=== PATIENT | female | born 1955 | race Caucasian/White ===

== ENCOUNTER 2017-12-23 08:04 | Outpatient (CLI) | payer BC, MEDICARE ==
--- NOTE | 2017-12-23 09:31 | RAD ---
CHEST PA AND LATERAL: HISTORY: A 62-year-old female with a history of dyspnea. COMPARISON: 12/05/15. FINDINGS: Heart size is within normal limits. The lungs are clear. No pneumonia, edema, or pleural effusion. IMPRESSION: Stable-appearing chest. No acute intrathoracic disease. POS: [facility]
== END 2017-12-23 08:05 | disposition home or self-care (01) ==
LOC: RAD 08:04
PROVIDERS: ATTEND Internal Medicine Critical Care Medicine
DX: R06.00 Dyspnea, unspecified (principal)
CPT/HCPCS: 71046

== ENCOUNTER 2018-06-25 13:35 | Outpatient (CLI) | payer MEDICARE ==
--- NOTE | 2018-06-25 15:40 | MRI ---
NONCONTRAST ENHANCED MRI IMAGES LUMBAR SPINE: DATE: 06/25/2018. COMPARISON: Comparison is made to a previous exam from 11/06/2013. FINDINGS: MRI images again demonstrate a large right renal cortical cyst unchanged since the previous exam. T12-L1: There is a tiny posterior left L1 facet synovial cyst. This does not extend into the spinal canal. No other significant T12-L1 abnormality is seen. There is a newly developed right L1-[address]-migrating epidural density possibly due to a fragment and migration of the right L1-2 disk extrusi on extending into the right L1-2 lateral recess and compressing the right L1 nerve root. L1-2: Unremarkable. L2-3: There is disk desiccation seen. There is bilateral facet and ligamentum flavum hypertrophy re sulting in mild central spinal stenosis. There is interval development of new left L2-3 lateral rece ss stenosis which compresses the left L3 nerve root as it passes through the lateral recess. This costello s developed in the interim since the previous comparison MRI. L3-4: Disk desiccation is seen. There is a broad-based central disk protrusion resulting in mild ce ntral and moderate lateral recess stenosis. The L3-4 lateral recesses have narrowed when compared to the previous exam slightly. The neural foramen bilaterally have also narrowed now demonstrating mod erate bilateral neural foraminal narrowing. L4-5: There is disk desiccation seen. There is mild anterolisthesis of L4 on L5. Bilateral facet a nd ligamentum flavum hypertrophy is seen. This results in moderate to severe right and severe left-s ided L4-5 neural foraminal narrowing due to facet hypertrophic changes. An annular fissure seen elsa g the posterior aspect of the L4-5 annulus fibrosis. There is moderate central spinal stenosis. Thi s is similar in appearance to the previous comparison arteriovenous malformation. L5-S1: Disk desiccation is seen. There is a broad-based disk bulge with moderate to severe left and moderate right-sided neural foraminal narrowing. IMPRESSION: 1. Right epidural and neural foraminal soft tissue density most compatible with an extruded disk fra gment migrating upward from the right L1-2 disk space. 2. Increasing facet hypertrophy with neural foraminal narrowing as described above. POS: [facility]
== END 2018-06-25 13:36 | disposition home or self-care (01) ==
LOC: BICMRI 13:35
PROVIDERS: ATTEND Specialist
DX: M51.16 Intervertebral disc disorders with radiculopathy, lumbar region (principal); M99.83 Other biomechanical lesions of lumbar region
CPT/HCPCS: 72148

== ENCOUNTER 2019-03-03 10:28 | Outpatient (CLI) | payer BC, MEDICARE ==
--- NOTE | 2019-03-03 11:00 | RAD ---
CHEST 2 VIEWS: Date: 03/03/19 HISTORY: Dyspnea. COMPARISON: 12/23/17 study. FINDINGS: Heart size within normal limits. There are atherosclerotic changes of the aorta. There is some linear scarring present in the left base. No focal infiltrative process. No pulmonary nodules. IMPRESSION: Stable exam. POS: [facility]
== END 2019-03-03 10:29 | disposition home or self-care (01) ==
LOC: RAD 10:28
PROVIDERS: ATTEND Internal Medicine Critical Care Medicine
DX: R06.00 Dyspnea, unspecified (principal)
CPT/HCPCS: 71046

== ENCOUNTER 2019-05-19 20:11 | Observation (INO) | payer BC, MEDICARE ==
[2019-05-19 20:36] LABS: #Basophils 0.1 thou/uL (0.0-0.2); #Eosinphils 0.1 thou/uL (0.0-0.7); #Monocytes 1.3 thou/uL (0.11-0.59); #Neutrophils 8.9 thou/uL (1.40-6.50); %Basophils 0.8 % (0.0-1.0); %Eosinophils 0.8 % (0.0-10.0); %Lymphocytes 22.7 % (21.0-51.0); %Monocytes 9.3 % (0.0-10.0); %Neutrophils 66.4 % (42.0-75.0); Mean Corpuscular HGB CONC 33.4 g/dL (32.0-36.0); Mean Corpuscular Hemoglobin 33.2 pg (27.0-31.0); Mean Corpuscular Volume 99.4 fL (78.0-98.0); Mean Platelet Volume 6.5 fL (7.4-10.4); Platelet Count 423 thou/uL (130-400); RBC Distribution Width 11.9 % (11.5-14.5); White Blood Cell (WBC) Count 13.4 thou/uL (4.8-10.8)
[2019-05-19] MEDS ORDERED: Nitroglycerin 2% Ointment 1 INCH/1 GM Packet ONE (20:39)
--- NOTE | 2019-05-19 20:52 | RAD ---
CHEST ONE VIEW: 05/19/19 HISTORY: Chest heaviness and pain. COMPARISON: 10/29/16 FINDINGS: Normal cardiac silhouette. Pulmonary vessels and hilum are normal. Costophrenic angles are clear. No consolidation or mass. No pneumothorax or osseous abnormality. There is atherosclerosis of the aortic knob. IMPRESSION: 1. No acute cardiopulmonary process. 2. Atherosclerosis. POS: [facility]
[2019-05-19 20:55] LABS: ALT (SGPT) 14 U/L (8-55); AST (SGOT) 19 U/L (5-34); Albumin 4.4 g/dL (3.4-4.8); Alkaline Phosphatase 83 U/L (40-150); Anion Gap 12 mmol/L (10-20); BUN (Urea Nitrogen) 14 mg/dL (9.8-20.1); Bilirubin, Total 0.3 mg/dL (0.2-1.2); CK (CPK) 111 U/L (29-168); Calc. Creatinine Clearance 0 mL/min (70-130); Calcium 11.2 mg/dL (7.8-10.44); Carbon Dioxide 25 mmol/L (23-31); Chloride 103 mmol/L (98-107); Estimated GFR-MDRD 76; Globulin 3.3 g/dL (2.4-3.5); Glucose 88 mg/dL (80-115); Potassium 4.2 mmol/L (3.5-5.1); Protein, Total 7.7 g/dL (6.0-8.3); Sodium 136 mmol/L (136-145)
[2019-05-19] MEDS ORDERED: Aspirin 325 MG TAB ONE (22:29)
--- NOTE | 2019-05-19 23:05 | PDOC.EVN ---
Event Note - Event Note Event Note: H&P dictated [id number]
[2019-05-19 23:10] VITALS: BMI 23.2
[2019-05-20 00:09] LABS: Troponin I Less than 0.010 ng/mL (< 0.028)
[2019-05-20 02:53] LABS: Troponin I Less than 0.010 ng/mL (< 0.028)
[2019-05-20 02:57] LABS: Cardiac Risk 2.2 (Less than 4.5)
--- NOTE | 2019-05-20 04:33 | HP ---
CHIEF COMPLAINT: Chest pain. HISTORY OF PRESENT ILLNESS: Ms. Rodriguez is a 64-year-old female with past medical history of asthma/COPD, presented to the emergency room with chest pain and shortness of breath since this morning. The patient also reported nausea while en route. The patient described chest pain as heavy in nature. The patient stated that she has taken nitroglycerin at home prior to arrival. She described nitroglycerin was prescribed by Dr. Barnes for angina. The patient has a history of two carotid surgeries. The patient reports history of negative catheterization. In the emergency room, initial blood pressure was 190/80. The patient is being admitted for hospital for further management. PAST MEDICAL HISTORY: 1. Asthma/COPD. 2. Hyperlipidemia. 3. Hypertension. 4. Bowel obstruction. 5. Inflammatory bowel disease/Crohn's. 6. Vasculitis. 7. Arthritis. 8. Peripheral neuropathy. 9. Hypothyroidism. 10. Migraines. 11. CVA? PAST SURGICAL HISTORY: 1. Laparoscopic cholecystectomy. 2. Gastric surgery x13. 3. Hernia repair. 4. Carotid endarterectomy. 5. Appendectomy. 6. Hysterectomy. 7. Orthopedic surgery. 8. Total knee replacement. 9. Splenectomy. 10. Tonsillectomy. SOCIAL HISTORY: The patient currently smokes about half a pack a day. Denies drug abuse. The patient drinks socially. FAMILY HISTORY: Reviewed and noncontributory. HOME MEDICATIONS: Please see home medication reconciliation form for updated medications. ALLERGIES: LISTED PER IN THE CHART. REVIEW OF SYSTEMS: Review of 14-systems negative except what was mentioned in the history of present illness. PHYSICAL EXAMINATION: VITAL SIGNS: Blood pressure 155/78, pulse is 67, respiratory rate is 22. The patient is afebrile. HEAD AND NECK: Normocephalic and atraumatic. Neck is supple. CHEST: Bilateral air entry. HEART: S1 and S2 regular. ABDOMEN: Soft. Nontender. Bowel sounds present. NEUROLOGIC: Awake, alert, and oriented x3. PSYCHIATRIC: Normal mood. EXTREMITIES: No clubbing. No cyanosis. LABORATORY DATA: Troponin is less than 0.028. WBC 13.4, hemoglobin 14. Chest x-ray, no acute cardiopulmonary disease. EKG, sinus rhythm with nonspecific ST changes. ASSESSMENT: 1. Acute chest pain. 2. Hypertensive urgency. 3. Asthma/chronic obstructive pulmonary disease. 4. Arthritis. 5. Degenerative disk disease. 6. Hypothyroidism. PLAN: 1. Admit. 2. Telemetry monitoring. 3. Monitor and control blood pressure. 4. Aspirin. 5. Serial cardiac enzymes. 6. Reassess the patient in a.m. May need cardiac stress testing. 7. Reconcile home medications. 8. Deep venous thrombosis prophylaxis, early ambulation. 9. Expected length of stay at least 1 midnight if the patient is stable and further workup negative. Job ID: [id number]
[2019-05-20] MEDS ORDERED: Mag-Al 1200 mg/1200 mg/30 ML UDCUP PO PRN (07:27)
[2019-05-20 08:19] VITALS: TEMP 98.3
[2019-05-20] MEDS ORDERED: Benzonatate 100 MG CAP PO PRN (08:19)
[2019-05-20] MEDS ORDERED: Nitroglycerin 0.4 MG TAB (25 Tab Bottle) SL PRN (08:19)
[2019-05-20] MEDS ORDERED: HYDROcodone/Acetaminophen 10/325 mg Tablet PO PRN (08:19)
[2019-05-20] MEDS ORDERED: Promethazine 25 MG TAB PO PRN (08:19)
[2019-05-20] MEDS ORDERED: Aspirin 325 mg Enteric Coated Tablet PO SCH (09:00)
[2019-05-20] MEDS ORDERED: Prevnar 13-Val Conj/PF 0.5 ML SYRINGE IM ONE (09:00)
[2019-05-20 12:08] VITALS: BP 176/81
[2019-05-20 12:13] LABS: #Basophils 0.1 thou/uL (0.0-0.2); #Eosinphils 0.1 thou/uL (0.0-0.7); #Lymphocytes 2.4 thou/uL (1.20-3.40); #Monocytes 1.2 thou/uL (0.11-0.59); #Neutrophils 10.9 thou/uL (1.40-6.50); %Basophils 0.4 % (0.0-1.0); %Eosinophils 0.7 % (0.0-10.0); %Lymphocytes 16.1 % (21.0-51.0); %Monocytes 8.4 % (0.0-10.0); %Neutrophils 74.4 % (42.0-75.0); Hemoglobin 14.3 g/dL (12.0-16.0); Mean Corpuscular HGB CONC 32.8 g/dL (32.0-36.0); Mean Corpuscular Hemoglobin 32.5 pg (27.0-31.0); Mean Corpuscular Volume 99.1 fL (78.0-98.0); Mean Platelet Volume 6.8 fL (7.4-10.4); Platelet Count 432 thou/uL (130-400); RBC Distribution Width 11.9 % (11.5-14.5); Red Blood Cell (RBC) Count 4.41 mill/uL (4.20-5.40); White Blood Cell (WBC) Count 14.7 thou/uL (4.8-10.8)
[2019-05-20 12:35] LABS: ALT (SGPT) 16 U/L (8-55); AST (SGOT) 20 U/L (5-34); Albumin 4.5 g/dL (3.4-4.8); Alkaline Phosphatase 85 U/L (40-150); Anion Gap 13 mmol/L (10-20); BUN (Urea Nitrogen) 15 mg/dL (9.8-20.1); Bilirubin, Total 0.4 mg/dL (0.2-1.2); Calc. Creatinine Clearance 72 mL/min (70-130); Calcium 10.5 mg/dL (7.8-10.44); Carbon Dioxide 28 mmol/L (23-31); Chloride 100 mmol/L (98-107); Estimated GFR-MDRD 74; Globulin 3.4 g/dL (2.4-3.5); Glucose 91 mg/dL (80-115); Potassium 5.2 mmol/L (3.5-5.1); Protein, Total 7.9 g/dL (6.0-8.3); Sodium 136 mmol/L (136-145)
[2019-05-20] MEDS ORDERED: Budesonide 0.25 MG/2 ML NEB NEB SCH (18:30)
[2019-05-20] MEDS ORDERED: Senokot 8.6 MG TAB PO SCH (21:00)
[2019-05-20] MEDS ORDERED: Atorvastatin Calcium 20 MG TAB PO SCH (21:00)
[2019-05-20] MEDS ORDERED: traZODone HCl 150 MG TAB PO SCH (21:00)
[2019-05-20] MEDS ORDERED: Aspirin 81 mg Enteric Coated Tablet PO SCH (21:00)
[2019-05-21] MEDS ORDERED: Levothyroxine 175 MCG TAB PO SCH (06:00)
--- NOTE | 2019-05-21 19:12 | DIS ---
DATE OF ADMISSION: 05/19/2019 DATE OF DISCHARGE: 05/20/2019 DISCHARGE DIAGNOSES: 1. Chest pain. 2. Tobacco abuse. 3. Hypertension. 4. Hyperlipidemia. 5. History of asthma/chronic obstructive pulmonary disease. HISTORY OF PRESENT ILLNESS: The patient is a 64-year-old female, who presented to the emergency department with a complaint of chest pain and some shortness of breath. She had some associated nausea en route to the hospital. She had taken some nitroglycerin previously prescribed by Dr. Barnes. She had negative troponin. Chest x-ray was clear. EKG had no significant ischemic changes. Her blood pressure was initially elevated. It was also noted that the patient had previously had a negative stress test in 2017, normal prior echocardiograms, and heart catheterization in 2016 which did not demonstrate any significant disease. HOSPITAL COURSE: The patient was admitted to telemetry where she continued to have serial cardiac isoenzymes and they remained negative. She did have elevated white blood cell count, but reported that she has a history of splenomegaly and always has elevated white blood cell count which was confirmed by a review of her prior labs. The patient's pain had completely resolved. She stated that point that she felt confident that her symptoms had come because of some psychosocial stressors that she had been experiencing through the day. She was not interested in pursuing aggressive workup knowing that her initial workup had been negative. She felt comfortable discharging to follow up with her gravity prospecting observer as an outpatient, and I believe that is a reasonable plan of action, therefore the patient would be discharged to home. PHYSICAL EXAMINATION: VITAL SIGNS: On the day of discharge, temperature 98.3, pulse 68, respirations 20, O2 saturation 96% on room air, blood pressure 149/67, up to 176/81. GENERAL: She was awake and alert. HEART: Regular rate and rhythm. LUNGS: Clear bilaterally. ABDOMEN: Benign. EXTREMITIES: No edema. DISPOSITION: The patient is discharged to home. ACTIVITY: As tolerated. DIET: She will have no new dietary restrictions. DISCHARGE MEDICATIONS: She will continue with her usual home medication regimen to include; 1. Senokot. 2. [place]. 3. Synthroid. 4. Ranexa. 5. Phenergan. 6. Aspirin. 7. Nitroglycerin p.r.n. 8. Atorvastatin. 9. Tessalon. 10. Budesonide nebulizer. 11. Trazodone. DISCHARGE FOLLOWUP: She will follow up with Dr. Cortes, her gravity prospecting observer, and return to the hospital should she have any problems prior to that time. Job ID: [id number]
== END 2019-05-20 13:02 | disposition home or self-care (01) ==
LOC: ERS 20:11 → 2SW 21:40
PROVIDERS: ADMIT Internal Medicine; ATTEND Internal Medicine
DX: R07.9 Chest pain, unspecified (principal); I16.0 Hypertensive urgency; I10 Essential (primary) hypertension; E78.5 Hyperlipidemia, unspecified; J44.9 Chronic obstructive pulmonary disease, unspecified; E03.9 Hypothyroidism, unspecified; M19.90 Unspecified osteoarthritis, unspecified site; F17.210 Nicotine dependence, cigarettes, uncomplicated; Z79.82 Long term (current) use of aspirin; Z79.899 Other long term (current) drug therapy; Z88.2 Allergy status to sulfonamides; Z88.5 Allergy status to narcotic agent; Z91.013 Allergy to seafood
CPT/HCPCS: 36415; 71045; 80053; 80061; 82550; 83690; 84484; 85025; 93005; G0378

== ENCOUNTER 2020-01-17 07:56 | Outpatient (CLI) | payer BC, MEDICARE, OTHER ==
--- NOTE | 2020-01-17 09:14 | MRI ---
MRI LUMBAR SPINE NONCONTRAST:: HISTORY: Lumbar radiculopathy. Low back pain, radiating down the right leg x4 months. COMPARISON: 06/25/2018. FINDINGS: Appropriate T1 marrow signal intensity of the lumbar vertebra. Lumbar spine vertebral body height is maintained. No fracture. No significant STIR hyperintensity to suggest vertebral body edema or ligamentous injury. Stable straightening of lumbar lordosis. Appropriate signal intensity of the visualized paraspinal muscles. Redemonstration of exophytic cyst emanating from the right renal cortex, incompletely evaluated. 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 Conus medullaris terminates at the mid to lower aspect of T12. T12-L1:Adequate disc hydration. No significant central canal stenosis or significant neural foraminal narrowing. L1-L2:Adequate disc hydration. Minimal T2 and STIR hyperintensity along the posterior margin of the a nnulus which may represent a small annular fissure. No associated disc herniation. No significant central canal stenosis. Bilaterally, neural foramina are patent. L2-L3:Disc desiccation with mild loss of disc space height. There is a broad-based disc bulge with a central/left subarticular T2 and STIR hyperintense focus annular fissure. Annular fissure does abut the traversing left L3 nerve root. Overall there is mild central canal stenosis and mild bilateral ne ural foraminal narrowing. L3-L4:Disc desiccation with mild to moderate loss of disc space height. Broad-based disc bulge, ligam entum flavum thickening and facet hypertrophy result in mild central canal stenosis. Narrowing of bilateral subarticular zones, right greater than left. Partial obscuration of the traversing right nerve root. No significant obscuration of the traversing left L4 nerve root. Mild to moderate bilateral neural foraminal narrowing, L4-L5:Disc desiccation with moderate loss of disc space height. Broad-based disc bulge, ligamentum fl avum thickening and facet hypertrophy result in mild central canal stenosis. Moderate to severe bilateral neural foraminal narrowing. L5-S1:Mild loss of disc space height. Broad-based disc bulge abuts the thecal sac. Mild central canal stenosis. Moderate to severe bilateral neural foraminal narrowing. IMPRESSION: 1. Multilevel degenerative changes of the lumbar spine as described above. 2. Multilevel annular fissures as described above. 3. Previously noted extruded disc fragment at the right aspect of the L1-L2 disc space is no longer e vident. Transcribed Date/Time: 01/17/2020 10:19 AM
== END 2020-01-17 07:57 | disposition home or self-care (01) ==
LOC: BICMRI 07:56
PROVIDERS: ATTEND Specialist
DX: M47.26 Other spondylosis with radiculopathy, lumbar region (principal); Q05.7 Lumbar spina bifida without hydrocephalus
CPT/HCPCS: 72148

== ENCOUNTER 2020-04-08 09:50 | Observation (INO) | payer MEDICARE, OTHER ==
[2020-04-08] MEDS ORDERED: Nitroglycerin 2% Ointment 1 INCH/1 GM Packet ONE (10:02)
[2020-04-08 15:02] LABS: Troponin I 0.025 ng/mL (< 0.028)
[2020-04-09 11:54] LABS: SARS-CoV-2 MS2 Positive; SARS-CoV-2 N Gene Negative; SARS-CoV-2 S Gene Negative; SARS-CoV-2 by NAA Not Detected (NotDetected); SARS-CoV-2 orf1ab Negative
== END 2020-04-08 15:44 | disposition short-term general hospital (02) ==
LOC: ERS 09:50 → ERHOLD 10:41
PROVIDERS: ADMIT Internal Medicine; ATTEND Internal Medicine
DX: R07.2 Precordial pain (principal); E78.5 Hyperlipidemia, unspecified; E78.00 Pure hypercholesterolemia, unspecified; I10 Essential (primary) hypertension; K50.90 Crohn's disease, unspecified, without complications; G62.9 Polyneuropathy, unspecified; E03.9 Hypothyroidism, unspecified; J45.909 Unspecified asthma, uncomplicated; F17.210 Nicotine dependence, cigarettes, uncomplicated; Z86.73 Personal history of transient ischemic attack (TIA), and cerebral infarction without residual deficits; Z79.82 Long term (current) use of aspirin; Z79.899 Other long term (current) drug therapy; Z88.2 Allergy status to sulfonamides; Z88.5 Allergy status to narcotic agent; Z91.013 Allergy to seafood; Z20.828 Contact with and (suspected) exposure to other viral communicable diseases
CPT/HCPCS: 84484; 93005; 99285; U0003; 36415; 87635

== ENCOUNTER 2020-12-20 12:01 | Outpatient (CLI) | payer MEDICARE | END 2020-12-20 12:02 | disposition home or self-care (01) | LOC: BICRAD 12:01 | PROVIDERS: ATTEND Internal Medicine Critical Care Medicine | DX: R06.00 Dyspnea, unspecified (principal) | CPT/HCPCS: 71046 ==

== ENCOUNTER 2021-07-09 08:39 | Outpatient (CLI) | payer MEDICARE | END 2021-07-09 08:40 | disposition home or self-care (01) | LOC: RAD 08:39 | PROVIDERS: ATTEND Internal Medicine Critical Care Medicine | DX: R06.00 Dyspnea, unspecified (principal) | CPT/HCPCS: 71046 ==

== ENCOUNTER 2021-10-13 07:07 | Inpatient (IN) | payer MEDICARE ==
[2021-10-13] MEDS ORDERED: Aspirin Chewable 81 MG TAB ONE (07:32)
[2021-10-13] MEDS ORDERED: Nitroglycerin 2% Ointment 1 INCH/1 GM Packet ONE ×2 (07:32→13:33)
[2021-10-13 07:46] LABS: #Basophils 0.1 thou/uL (0.0-0.2); #Eosinphils 0.1 thou/uL (0.0-0.7); #Lymphocytes 1.9 thou/uL (1.20-3.40); #Monocytes 1.1 thou/uL (0.11-0.59); %Eosinophils 0.8 % (0.0-10.0); %Lymphocytes 15.7 % (21.0-51.0); %Neutrophils 73.6 % (42.0-75.0); Hemoglobin 14.5 g/dL (12.0-16.0); Mean Corpuscular HGB CONC 32.9 g/dL (32.0-36.0); Mean Corpuscular Hemoglobin 32.3 pg (27.0-31.0); Mean Platelet Volume 6.5 fL (7.4-10.4); Platelet Count 466 thou/uL (130-400); RBC Distribution Width 12.3 % (11.5-14.5); Red Blood Cell (RBC) Count 4.49 mill/uL (4.20-5.40); White Blood Cell (WBC) Count 12.2 thou/uL (4.8-10.8)
[2021-10-13 08:14] LABS: ALT (SGPT) 14 U/L (8-55); AST (SGOT) 18 U/L (5-34); Albumin 4.4 g/dL (3.4-4.8); Alkaline Phosphatase 85 U/L (40-110); Anion Gap 14 mmol/L (10-20); BUN (Urea Nitrogen) 9 mg/dL (9.8-20.1); Bilirubin, Total 0.3 mg/dL (0.2-1.2); CK (CPK) 117 U/L (29-168); Calc. Creatinine Clearance 0 mL/min (70-130); Calcium 9.8 mg/dL (7.8-10.44); Carbon Dioxide 25 mmol/L (23-31); Chloride 104 mmol/L (98-107); Globulin 3.9 g/dL (2.4-3.5); Glucose 92 mg/dL (80-115); Lipase 36 U/L (8-78); Potassium 4.2 mmol/L (3.5-5.1); Protein, Total 8.3 g/dL (5.8-8.1); Sodium 139 mmol/L (136-145)
[2021-10-13] MEDS ORDERED: Iopamidol-370 76% 500 ML 1 ML ONE (09:11)
[2021-10-13] MEDS ORDERED: Metoprolol Tartrate 5 MG/5 ML VIAL ONE (10:07)
[2021-10-13] MEDS ORDERED: Enoxaparin Sodium 60 MG/0.6 ML SYRINGE ONE (10:07)
[2021-10-13] MEDS ORDERED: Nitroglycerin 0.4 MG TAB (25 Tab Bottle) SL PRN (10:18)
[2021-10-13] MEDS ORDERED: Ondansetron PF 4 MG/2 ML Vial IVP PRN (10:56)
[2021-10-13] MEDS ORDERED: Guaifenesin DM 100-10/5 ML UDCUP PO PRN (10:56)
[2021-10-13] MEDS ORDERED: Ondansetron ODT 4 MG TAB PO PRN (10:56)
[2021-10-13] MEDS ORDERED: Calcium Carbonate 500 MG ChewTAB PO PRN (10:56)
[2021-10-13] MEDS ORDERED: Acetaminophen 325 MG TAB PO PRN (10:56)
[2021-10-13] MEDS ORDERED: Senokot S 8.6-50 MG TAB PO PRN (10:56)
[2021-10-13 11:33] LABS: Troponin I Less than 0.010 ng/mL (< 0.028)
[2021-10-13 11:37] LABS: Magnesium 2.3 mg/dL (1.6-2.6)
[2021-10-13] MEDS: Nitroglycerin 2% Ointment 1 INCH/1 GM Packet TOP SCH ×2 (13:27→22:10)
[2021-10-13 14:13] LABS: Troponin I Less than 0.010 ng/mL (< 0.028)
[2021-10-13 16:57] VITALS: BMI 23.3
[2021-10-13] MEDS: Nicotine 14 MG PATCH TOP SCH (18:29)
[2021-10-13] MEDS: Albuterol Sulfate 2.5 mg/3 ml Neb NEB SCH (19:22)
[2021-10-13] MEDS: Budesonide 0.5 MG/2 ML NEB FS SCH (19:26)
[2021-10-13] MEDS: traZODone HCl 50 MG TAB PO SCH (20:29)
[2021-10-13] MEDS: Benzonatate 100 MG CAP PO SCH (20:29)
[2021-10-13] MEDS: Famotidine 20 MG TAB PO SCH (20:30)
[2021-10-13] MEDS: NIFEdipine XL 30 MG TAB PO SCH (20:30)
[2021-10-13] MEDS: Famotidine/PF 20 mg/2ml Vial SLOW IVP SCH (22:10)
[2021-10-14] MEDS: HYDROcodone/Acetaminophen 10/325 mg Tablet PO PRN ×2 (01:48→12:49)
[2021-10-14 04:49] LABS: #Basophils 0.1 thou/uL (0.0-0.2); #Eosinphils 0.2 thou/uL (0.0-0.7); #Lymphocytes 2.3 thou/uL (1.20-3.40); #Monocytes 1.3 thou/uL (0.11-0.59); #Neutrophils 7.2 thou/uL (1.40-6.50); %Basophils 0.5 % (0.0-1.0); %Eosinophils 1.6 % (0.0-10.0); %Lymphocytes 20.6 % (21.0-51.0); %Monocytes 11.7 % (0.0-10.0); %Neutrophils 65.7 % (42.0-75.0); Mean Corpuscular HGB CONC 31.3 g/dL (32.0-36.0); Mean Corpuscular Hemoglobin 31.3 pg (27.0-31.0); Mean Corpuscular Volume 99.9 fL (78.0-98.0); Mean Platelet Volume 7.1 fL (7.4-10.4); Platelet Count 408 thou/uL (130-400); RBC Distribution Width 12.3 % (11.5-14.5); Red Blood Cell (RBC) Count 3.84 mill/uL (4.20-5.40)
[2021-10-14 05:12] LABS: Anion Gap 11 mmol/L (10-20); BUN (Urea Nitrogen) 10 mg/dL (9.8-20.1); Calc. Creatinine Clearance 87 mL/min (70-130); Calcium 8.7 mg/dL (7.8-10.44); Carbon Dioxide 22 mmol/L (23-31); Cardiac Risk 4.4 (Less than 4.5); Chloride 109 mmol/L (98-107); Cholesterol 190 mg/dl (< 200 Desired); Glucose 87 mg/dL (80-115); HDL Cholesterol 43 mg/dL (>60 Neg Risk); LDL Cholesterol, Calculated 126 mg/dL; Potassium 4.3 mmol/L (3.5-5.1); Sodium 138 mmol/L (136-145); Triglycerides 105 mg/dL (Less than 150)
[2021-10-14] MEDS: Levothyroxine Sodium 100 MCG TAB PO SCH (05:54)
[2021-10-14] MEDS: Levothyroxine Sodium 75 MCG TAB PO SCH (05:54)
[2021-10-14] MEDS: Nitroglycerin 2% Ointment 1 INCH/1 GM Packet TOP SCH ×2 (05:55→17:23)
[2021-10-14] MEDS: Albuterol Sulfate 2.5 mg/3 ml Neb NEB SCH ×4 (07:32→23:21)
[2021-10-14] MEDS: Budesonide 0.5 MG/2 ML NEB FS SCH ×2 (07:33→23:20)
[2021-10-14] MEDS ORDERED: Atorvastatin Calcium 40 MG TAB PO SCH (09:00)
[2021-10-14] MEDS: Benzonatate 100 MG CAP PO SCH ×3 (10:16→19:56)
[2021-10-14] MEDS: Famotidine/PF 20 mg/2ml Vial SLOW IVP SCH ×2 (10:17→19:58)
[2021-10-14] MEDS: Fluticasone Propionate Nasal Spray 16 gm Bottle NASAL SCH (10:17)
[2021-10-14] MEDS: NIFEdipine XL 30 MG TAB PO SCH ×2 (10:18→19:56)
[2021-10-14] MEDS: Famotidine 20 MG TAB PO SCH ×2 (11:57→19:57)
[2021-10-14] MEDS: Aspirin Chewable 81 MG TAB PO SCH (11:57)
[2021-10-14] MEDS ORDERED: Midazolam HCl 2 mg/2 ml Vial ONE (14:27)
[2021-10-14] MEDS ORDERED: Fentanyl 100 MCG/2 ML VIAL ONE (14:27)
[2021-10-14] MEDS ORDERED: Clopidogrel Bisulfate 300 MG TAB PO SCH (15:30)
[2021-10-14] MEDS: Nicotine 14 MG PATCH TOP SCH (17:18)
[2021-10-14] MEDS: traZODone HCl 50 MG TAB PO SCH (19:57)
[2021-10-15] MEDS: Levothyroxine Sodium 75 MCG TAB PO SCH (06:18)
[2021-10-15] MEDS: Levothyroxine Sodium 100 MCG TAB PO SCH (06:18)
[2021-10-15 07:29] LABS: Anion Gap 13 mmol/L (10-20); BUN (Urea Nitrogen) 9 mg/dL (9.8-20.1); Calc. Creatinine Clearance 83 mL/min (70-130); Calcium 9.2 mg/dL (7.8-10.44); Carbon Dioxide 24 mmol/L (23-31); Chloride 105 mmol/L (98-107); Glucose 101 mg/dL (80-115); Magnesium 2.1 mg/dL (1.6-2.6); Phosphorus 3.5 mg/dL (2.3-4.7); Potassium 4.1 mmol/L (3.5-5.1); Sodium 138 mmol/L (136-145)
[2021-10-15 07:31] LABS: #Basophils 0.1 thou/uL (0.0-0.2); #Eosinphils 0.1 thou/uL (0.0-0.7); #Lymphocytes 1.9 thou/uL (1.20-3.40); #Monocytes 1.1 thou/uL (0.11-0.59); #Neutrophils 11.1 thou/uL (1.40-6.50); %Basophils 0.6 % (0.0-1.0); %Eosinophils 0.6 % (0.0-10.0); %Lymphocytes 13.5 % (21.0-51.0); %Monocytes 7.9 % (0.0-10.0); %Neutrophils 77.4 % (42.0-75.0); Hemoglobin 12.6 g/dL (12.0-16.0); Mean Corpuscular HGB CONC 32.9 g/dL (32.0-36.0); Mean Corpuscular Hemoglobin 32.4 pg (27.0-31.0); Mean Corpuscular Volume 98.6 fL (78.0-98.0); Mean Platelet Volume 6.7 fL (7.4-10.4); Platelet Count 434 thou/uL (130-400); RBC Distribution Width 12.2 % (11.5-14.5); Red Blood Cell (RBC) Count 3.89 mill/uL (4.20-5.40); White Blood Cell (WBC) Count 14.4 thou/uL (4.8-10.8)
[2021-10-15] MEDS: Albuterol Sulfate 2.5 mg/3 ml Neb NEB SCH (07:42)
[2021-10-15] MEDS: Budesonide 0.5 MG/2 ML NEB FS SCH (07:43)
[2021-10-15] MEDS ORDERED: Atorvastatin Calcium 40 MG TAB PO SCH (08:18)
[2021-10-15] MEDS ORDERED: Lidocaine 5% Patch TD SCH (09:00)
[2021-10-15] MEDS ORDERED: Clopidogrel Bisulfate 75 MG TAB PO SCH (09:00)
[2021-10-15] MEDS ORDERED: Atorvastatin Calcium 20 MG TAB PO SCH (09:00)
[2021-10-15] MEDS: Famotidine/PF 20 mg/2ml Vial SLOW IVP SCH (09:11)
[2021-10-15] MEDS: Aspirin Chewable 81 MG TAB PO SCH (09:12)
[2021-10-15] MEDS: Famotidine 20 MG TAB PO SCH (09:13)
[2021-10-15] MEDS: Benzonatate 100 MG CAP PO SCH (09:13)
[2021-10-15] MEDS: Fluticasone Propionate Nasal Spray 16 gm Bottle NASAL SCH (09:25)
[2021-10-15] MEDS ORDERED: Albuterol Sulfate 2.5 mg/3 ml Neb NEB SCH (11:00)
[2021-10-15] MEDS: NIFEdipine XL 30 MG TAB PO SCH (11:19)
[2021-10-15 11:24] VITALS: BP 124/56; TEMP 98
[2021-10-15] MEDS ORDERED: Transdermal Patch Removal TOP SCH (21:00)
== END 2021-10-15 13:56 | disposition home or self-care (01) | DRG 287 ==
LOC: ERS 07:07 → ERHOLD 10:19 → 2SW 16:11 → 2NO 10-14 19:23
PROVIDERS: ADMIT Internal Medicine; ATTEND Family Medicine
PROC: 4A023N7 Measurement of Cardiac Sampling and Pressure, Left Heart, Percutaneous Approach (ICD-10-PCS; principal; 2021-10-13)
PROC: B2151ZZ Fluoroscopy of Left Heart using Low Osmolar Contrast (ICD-10-PCS; 2021-10-13)
PROC: B2111ZZ Fluoroscopy of Multiple Coronary Arteries using Low Osmolar Contrast (ICD-10-PCS; 2021-10-13)
DX: I25.110 Atherosclerotic heart disease of native coronary artery with unstable angina pectoris (principal); D69.3 Immune thrombocytopenic purpura; Z66 Do not resuscitate; Z20.822 Contact with and (suspected) exposure to COVID-19; I10 Essential (primary) hypertension; E78.5 Hyperlipidemia, unspecified; M79.7 Fibromyalgia; J44.9 Chronic obstructive pulmonary disease, unspecified; Z88.2 Allergy status to sulfonamides; Z88.5 Allergy status to narcotic agent; Z91.013 Allergy to seafood; Z90.49 Acquired absence of other specified parts of digestive tract; Z90.710 Acquired absence of both cervix and uterus; Z79.82 Long term (current) use of aspirin; Z79.890 Hormone replacement therapy; Z79.51 Long term (current) use of inhaled steroids; Z87.891 Personal history of nicotine dependence
CPT/HCPCS: 36415; 71045; 71275; 80048; 80053; 80061; 82550; 83690; 83735; 83880; 84100; 84443; 84484; 85025; 85379; 93005; 93458; 94640; 94760; 96372; 96374; 99152; J1650; J2250; J3010; J7611; J7626; Q9967; S0028

== ENCOUNTER 2022-01-30 13:10 | Outpatient (CLI) | payer MEDICARE | END 2022-01-30 13:11 | disposition home or self-care (01) | LOC: BICRAD 13:10 | PROVIDERS: ATTEND Nurse Practitioner Family | DX: M47.22 Other spondylosis with radiculopathy, cervical region (principal) | CPT/HCPCS: 72050 ==

== ENCOUNTER 2022-06-12 15:34 | Outpatient (CLI) | payer MEDICARE | END 2022-06-12 15:35 | disposition home or self-care (01) | LOC: RAD 15:34 | PROVIDERS: ATTEND Internal Medicine Critical Care Medicine | DX: R06.09 Other forms of dyspnea (principal) | CPT/HCPCS: 71046 ==

== ENCOUNTER 2023-03-10 20:41 | Observation (INO) | payer MEDICARE ==
[2023-03-10 21:01] LABS: #Basophils 0.1 thou/uL (0.0-0.2); #Eosinphils 0.3 thou/uL (0.0-0.7); #Monocytes 1.5 thou/uL (0.11-0.59); #Neutrophils 6.9 thou/uL (1.40-6.50); %Basophils 0.8 % (0.0-1.0); %Eosinophils 2.2 % (0.0-10.0); %Lymphocytes 23.3 % (21.0-51.0); %Monocytes 13.4 % (0.0-10.0); Hemoglobin 13.8 g/dL (12.0-16.0); Mean Corpuscular HGB CONC 33.7 g/dL (32.0-36.0); Mean Corpuscular Hemoglobin 32.5 pg (27.0-31.0); Mean Corpuscular Volume 96.5 fl (78.0-98.0); Mean Platelet Volume 8.7 fL (7.4-10.4); Platelet Count 375 10x3/uL (130-400); RBC Distribution Width 14.3 % (11.5-14.5); Red Blood Cell (RBC) Count 4.24 mill/uL (4.20-5.40); White Blood Cell (WBC) Count 11.5 10x3/uL (4.8-10.8)
[2023-03-10 21:25] LABS: ALT (SGPT) 15 U/L (8-55); AST (SGOT) 17 U/L (5-34); Albumin 4.3 g/dL (3.4-4.8); Alkaline Phosphatase 84 U/L (40-110); Anion Gap 13 mmol/L (10-20); BUN (Urea Nitrogen) 18 mg/dL (9.8-20.1); Bilirubin, Total Less than 0.2 mg/dL (0.2-1.2); Calc. Creatinine Clearance 0 mL/min (70-130); Calcium 9.9 mg/dL (7.8-10.44); Carbon Dioxide 23 mmol/L (23-31); Chloride 105 mmol/L (98-107); Estimated GFR 85; Globulin 3.4 g/dL (2.4-3.5); Glucose 104 mg/dL (80-115); Potassium 4.4 mmol/L (3.5-5.1); Protein, Total 7.7 g/dL (5.8-8.1); Sodium 137 mmol/L (136-145)
[2023-03-11 00:50] LABS: Troponin I 0.021 ng/mL (< 0.028)
[2023-03-11] MEDS ORDERED: Calcium Carbonate 500 MG ChewTAB PO PRN (00:51)
[2023-03-11] MEDS ORDERED: Ondansetron ODT 4 MG TAB PO PRN (00:51)
[2023-03-11] MEDS ORDERED: Acetaminophen 325 MG TAB PO PRN (00:51)
[2023-03-11] MEDS ORDERED: Senokot S 8.6-50 MG TAB PO PRN (00:51)
[2023-03-11] MEDS ORDERED: Nitroglycerin 0.4 MG TAB (25 Tab Bottle) SL PRN (00:53)
[2023-03-11] MEDS ORDERED: Albuterol 200 PUFF (6.7GM INHALER) INH PRN (00:53)
[2023-03-11 01:34] VITALS: BMI 22.4
[2023-03-11 04:18] LABS: #Basophils 0.1 thou/uL (0.0-0.2); #Eosinphils 0.3 thou/uL (0.0-0.7); #Monocytes 1.5 thou/uL (0.11-0.59); #Neutrophils 5.5 thou/uL (1.40-6.50); %Basophils 0.8 % (0.0-1.0); %Eosinophils 2.9 % (0.0-10.0); %Lymphocytes 25.5 % (21.0-51.0); %Monocytes 15.4 % (0.0-10.0); Hemoglobin 14.4 g/dL (12.0-16.0); Mean Corpuscular HGB CONC 33.6 g/dL (32.0-36.0); Mean Corpuscular Volume 95.1 fl (78.0-98.0); Mean Platelet Volume 9.4 fL (7.4-10.4); Platelet Count 312 10x3/uL (130-400); RBC Distribution Width 14.3 % (11.5-14.5); White Blood Cell (WBC) Count 9.9 10x3/uL (4.8-10.8)
[2023-03-11 04:49] LABS: Troponin I 0.016 ng/mL (< 0.028)
[2023-03-11] MEDS: Levothyroxine Sodium 125 MCG TAB PO SCH (05:39)
[2023-03-11] MEDS: HYDROcodone/Acetaminophen 5/325 mg Tablet PO PRN ×2 (06:25→14:05)
[2023-03-11 08:42] LABS: Anion Gap 12 mmol/L (10-20); BUN (Urea Nitrogen) 14 mg/dL (9.8-20.1); Calc. Creatinine Clearance 75 mL/min (70-130); Calcium 9.8 mg/dL (7.8-10.44); Carbon Dioxide 26 mmol/L (23-31); Chloride 105 mmol/L (98-107); Estimated GFR 94; Glucose 88 mg/dL (80-115); Potassium 4.4 mmol/L (3.5-5.1); Sodium 139 mmol/L (136-145)
[2023-03-11] MEDS ORDERED: (Evolocumab [Repatha Sureclick] 140 MG/ML Pen.Injctr) SC SCH (09:00)
[2023-03-11] MEDS: Aspirin 81 mg Enteric Coated Tablet PO SCH (09:00)
[2023-03-11] MEDS ORDERED: Famotidine 20 MG TAB PO SCH (09:00)
[2023-03-11] MEDS: Nicotine 14 MG PATCH TD SCH (09:00)
[2023-03-11] MEDS: NIFEdipine XL 30 MG TAB PO SCH ×2 (09:00→20:04)
[2023-03-11] MEDS ORDERED: traZODone HCl 150 MG TAB PO SCH (21:00)
[2023-03-12 05:28] LABS: #Basophils 0.1 thou/uL (0.0-0.2); #Eosinphils 0.2 thou/uL (0.0-0.7); #Monocytes 1.4 thou/uL (0.11-0.59); %Eosinophils 2.2 % (0.0-10.0); %Lymphocytes 22.3 % (21.0-51.0); %Monocytes 14.5 % (0.0-10.0); %Neutrophils 59.7 % (42.0-75.0); Hemoglobin 14.7 g/dL (12.0-16.0); Mean Corpuscular HGB CONC 33.3 g/dL (32.0-36.0); Mean Corpuscular Hemoglobin 32.3 pg (27.0-31.0); Mean Corpuscular Volume 96.9 fl (78.0-98.0); Mean Platelet Volume 8.6 fL (7.4-10.4); Platelet Count 373 10x3/uL (130-400); RBC Distribution Width 14.3 % (11.5-14.5); Red Blood Cell (RBC) Count 4.55 mill/uL (4.20-5.40)
[2023-03-12 05:52] LABS: Anion Gap 11 mmol/L (10-20); BUN (Urea Nitrogen) 19 mg/dL (9.8-20.1); Calc. Creatinine Clearance 75 mL/min (70-130); Calcium 9.9 mg/dL (7.8-10.44); Carbon Dioxide 24 mmol/L (23-31); Chloride 105 mmol/L (98-107); Estimated GFR 94; Glucose 94 mg/dL (80-115); Potassium 4.1 mmol/L (3.5-5.1); Sodium 136 mmol/L (136-145)
[2023-03-12] MEDS: Levothyroxine Sodium 125 MCG TAB PO SCH (05:54)
[2023-03-12] MEDS: NIFEdipine XL 30 MG TAB PO SCH (08:11)
[2023-03-12] MEDS: Aspirin 81 mg Enteric Coated Tablet PO SCH (08:12)
[2023-03-12] MEDS ORDERED: Regadenoson 0.4 MG/5 ML SYRINGE ONE (10:18)
[2023-03-12] MEDS: Nicotine 14 MG PATCH TD SCH (11:20)
[2023-03-12] MEDS: HYDROcodone/Acetaminophen 5/325 mg Tablet PO PRN (11:26)
[2023-03-12 13:21] VITALS: BP 145/65; TEMP 97.7
== END 2023-03-12 15:48 | disposition home or self-care (01) ==
LOC: ERS 20:41 → 2SW 22:50
PROVIDERS: ADMIT Student in an Organized Health Care Education/Training Program; ATTEND Internal Medicine
DX: R06.00 Dyspnea, unspecified (principal); I25.10 Atherosclerotic heart disease of native coronary artery without angina pectoris; I10 Essential (primary) hypertension; J44.9 Chronic obstructive pulmonary disease, unspecified; F17.210 Nicotine dependence, cigarettes, uncomplicated; E03.9 Hypothyroidism, unspecified; G47.00 Insomnia, unspecified; K21.9 Gastro-esophageal reflux disease without esophagitis; E78.5 Hyperlipidemia, unspecified; Z88.6 Allergy status to analgesic agent; Z88.2 Allergy status to sulfonamides; Z86.73 Personal history of transient ischemic attack (TIA), and cerebral infarction without residual deficits; Z90.49 Acquired absence of other specified parts of digestive tract; Z90.710 Acquired absence of both cervix and uterus; Z90.89 Acquired absence of other organs; Z79.890 Hormone replacement therapy; Z79.899 Other long term (current) drug therapy; Z91.018 Allergy to other foods
CPT/HCPCS: 71045; 78452; 80048 ×2; 80053; 83880; 84484 ×3; 85025 ×3; 93005; 93017; 93306; 99285; A9500; 36415; G0378; J2785

== ENCOUNTER 2023-04-21 08:15 | Observation (INO) | payer MEDICARE ==
[2023-04-21] MEDS ORDERED: fentaNYL PF 100 MCG/2 ML SYRINGE ONE (08:52)
[2023-04-21] MEDS ORDERED: Vancomycin 1 GM VIAL ONE (10:03)
[2023-04-21] MEDS ORDERED: Thrombin 5000 UNITS/5 ML VIAL ONE (10:03)
[2023-04-21] MEDS ORDERED: CEFAZOLIN 2 GM VIAL ONE (10:33)
[2023-04-21] MEDS ORDERED: Sodium Chloride 0.9% 100 ML ONE (10:33)
[2023-04-21] MEDS ORDERED: Lidocaine 1% PF 5 ML VIAL ONE (10:38)
[2023-04-21] MEDS ORDERED: Ondansetron PF 4 MG/2 ML Vial ONE (10:38)
[2023-04-21] MEDS ORDERED: PROPOFOL 200 MG/20 ML VIAL ONE (10:38)
[2023-04-21] MEDS ORDERED: Dexamethasone 20 MG/5 ML VIAL ONE (10:38)
[2023-04-21] MEDS ORDERED: Rocuronium Bromide 10 MG/ML (10ML VIAL) ONE (10:38)
[2023-04-21] MEDS ORDERED: ePHEDrine Sulfate 50 MG/10 ML VIAL ONE (10:38)
[2023-04-21] MEDS ORDERED: HYDROmorphone 2 MG/ML VIAL ONE (12:37)
[2023-04-21] MEDS ORDERED: SUGAMMADEX SODIUM 200 MG/2 ML VIAL ONE (12:42)
[2023-04-21] MEDS ORDERED: Ondansetron PF 4 MG/2 ML Vial IVP PRN (13:35)
[2023-04-21] MEDS ORDERED: traMADol HCl 50 MG TAB PO PRN (13:35)
[2023-04-21] MEDS ORDERED: Acetaminophen 325 MG TAB PO PRN (13:35)
[2023-04-21] MEDS ORDERED: HYDROmorphone 0.5 MG/0.5 ML SYRINGE ONE ×3 (13:37→14:17)
[2023-04-21] MEDS ORDERED: Nitroglycerin 0.4 MG TAB (25 Tab Bottle) SL PRN (13:40)
[2023-04-21] MEDS ORDERED: hydrALAZINE 20 MG/ML VIAL SLOW IVP PRN (13:40)
[2023-04-21] MEDS ORDERED: Ondansetron HCl/PF 4 MG/2 ML Vial IVP PRN (13:47)
[2023-04-21] MEDS ORDERED: HYDROmorphone 2 MG/ML VIAL SLOW IVP PRN (13:47)
[2023-04-21] MEDS ORDERED: Promethazine HCl 25 MG/ML VIAL IM PRN (13:47)
[2023-04-21] MEDS ORDERED: Ipratropium/Albuterol 3 ML NEB ONE (13:51)
[2023-04-21] MEDS ORDERED: Nicotine 14 MG PATCH TOP SCH (14:00)
[2023-04-21] MEDS: Sodium Chloride 0.9% 1,000 ML IV SCH (16:07)
[2023-04-21] MEDS: Morphine 2 MG/ML VIAL SLOW IVP PRN ×2 (16:41→19:50)
[2023-04-21] MEDS: CEFAZOLIN 2 GM in Sodium Chloride 0.9% 100 ML IVPB SCH (18:05)
[2023-04-21] MEDS: HYDROcodone/Acetaminophen 10/325 mg Tablet PO PRN (18:06)
[2023-04-21 18:17] VITALS: BMI 22.3
[2023-04-21] MEDS: NIFEdipine XL 30 MG TAB PO SCH (19:48)
[2023-04-21] MEDS: tiZANidine HCl 4 MG TAB PO PRN (19:49)
[2023-04-21] MEDS ORDERED: traZODone HCl 50 MG TAB PO PRN (21:00)
[2023-04-22] MEDS: Morphine 2 MG/ML VIAL SLOW IVP PRN (00:17)
[2023-04-22] MEDS: traMADol HCl 50 MG TAB PO PRN ×2 (01:29→09:23)
[2023-04-22] MEDS: CEFAZOLIN 2 GM in Sodium Chloride 0.9% 100 ML IVPB SCH (01:30)
[2023-04-22] MEDS: tiZANidine HCl 4 MG TAB PO PRN (05:05)
[2023-04-22] MEDS: Sodium Chloride 0.9% 1,000 ML IV SCH (05:05)
[2023-04-22] MEDS: HYDROcodone/Acetaminophen 10/325 mg Tablet PO PRN (05:05)
[2023-04-22] MEDS ORDERED: Levothyroxine 175 MCG TAB PO SCH (06:00)
[2023-04-22] MEDS: NIFEdipine XL 30 MG TAB PO SCH (08:35)
[2023-04-22 11:19] VITALS: BP 124/66; TEMP 98
== END 2023-04-22 11:35 | disposition home or self-care (01) ==
LOC: SDC 08:15 → T4-A 13:35
PROVIDERS: ADMIT Surgery; ATTEND Surgery
PROC: 01NB0ZZ Release Lumbar Nerve, Open Approach (ICD-10-PCS; principal; 2023-04-21)
PROC: 0SB20ZZ Excision of Lumbar Vertebral Disc, Open Approach (ICD-10-PCS; 2023-04-21)
PROC: 0SB40ZZ Excision of Lumbosacral Disc, Open Approach (ICD-10-PCS; 2023-04-21)
DX: M48.062 Spinal stenosis, lumbar region with neurogenic claudication (principal); M51.17 Intervertebral disc disorders with radiculopathy, lumbosacral region; M50.30 Other cervical disc degeneration, unspecified cervical region; M50.20 Other cervical disc displacement, unspecified cervical region; M48.02 Spinal stenosis, cervical region
CPT/HCPCS: J1100; J1170; J2272; J2405; J2704; J3370; J3490; J7050; J7620

== ENCOUNTER 2023-11-09 09:57 | Outpatient (CLI) | payer MEDICARE ==
[2023-11-09 11:58] LABS: Hematocrit 42.1 % (34.9-44.5); Mean Corpuscular HGB CONC 33.3 g/dL (32.0-36.0); Mean Corpuscular Hemoglobin 31.1 pg (27.0-33.0); Mean Corpuscular Volume 93.6 fl (81.6-98.3); Mean Platelet Volume 9.1 fl (7.4-10.4); Platelet Count 452 10x3/uL (150-450); RBC Distribution Width 13.8 % (11.5-14.5); White Blood Cell (WBC) Count 11.5 10x3/uL (3.5-10.5)
[2023-11-09 12:15] LABS: Anion Gap 13 mmol/L (10-20); BUN (Urea Nitrogen) 16 mg/dL (9.8-20.1); Calc. Creatinine Clearance 0 mL/min (70-130); Calcium 9.9 mg/dL (7.8-10.44); Carbon Dioxide 27 mmol/L (23-31); Chloride 105 mmol/L (98-107); Estimated GFR 94; Glucose 61 mg/dL (80-115); INR-International Normal Ratio 0.9; PTT 27.1 sec (22.0-33.0); Potassium 4.7 mmol/L (3.5-5.1); Prothrombin Time 9.8 sec (9.5-12.1); Sodium 140 mmol/L (136-145)
[2023-11-09 12:33] LABS: SARS-CoV-2 E Target Negative; SARS-CoV-2 N2 Target Negative; SARS-CoV-2 NAA Rapid Test Not Detected (NotDetected); SARS-CoV-2 RdRP gene Negative
== END 2023-11-09 09:58 | disposition home or self-care (01) ==
LOC: LABBT 09:57
PROVIDERS: ATTEND Surgery
DX: Z01.818 Encounter for other preprocedural examination (principal)
CPT/HCPCS: 80048; 85027; 85610; 85730; 93005; U0002; 93010

== ENCOUNTER 2024-05-22 19:41 | Observation (INO) | payer MEDICARE ==
[2024-05-22 20:23] LABS: #Basophils 0.08 10x3/uL (0.0-0.2); %Basophils 0.6 % (0.0-1.0); %Eosinophils 1.6 % (0.0-10.0); %Lymphocytes 29.8 % (21.0-51.0); %Monocytes 10.6 % (0.0-10.0); Hematocrit 39.2 % (36.0-47.0); Hemoglobin 13.4 g/dL (12.0-16.0); Mean Corpuscular HGB CONC 34.2 g/dL (32.0-36.0); Mean Corpuscular Hemoglobin 32.1 pg (27.0-31.0); Mean Corpuscular Volume 93.8 fL (78.0-98.0); Mean Platelet Volume 8.7 fL (7.4-10.4); Platelet Count 421 10x3/uL (130-400); RBC Distribution Width 13.5 % (11.5-14.5); Red Blood Cell (RBC) Count 4.18 mill/uL (4.20-5.40)
[2024-05-22 20:37] LABS: ALT (SGPT) 17 U/L (8-55); AST (SGOT) 23 U/L (5-34); Albumin 4.1 g/dL (3.4-4.8); Alkaline Phosphatase 72 U/L (40-110); Anion Gap 16 mmol/L (10-20); BUN (Urea Nitrogen) 15 mg/dL (9.8-20.1); Bilirubin, Total 0.2 mg/dL (0.2-1.2); Calc. Creatinine Clearance 0 mL/min (70-130); Calcium 9.9 mg/dL (7.8-10.44); Carbon Dioxide 20 mmol/L (23-31); Chloride 108 mmol/L (98-107); Estimated GFR 76; Globulin 3.9 g/dL (2.4-3.5); Glucose 86 mg/dL (80-115); Lipase 20 U/L (8-78); Potassium 4.6 mmol/L (3.5-5.1); Sodium 139 mmol/L (136-145)
[2024-05-22 20:42] LABS: Troponin I Less than 0.010 ng/mL (< 0.028)
[2024-05-22] MEDS ORDERED: Labetalol HCl 100 MG/20 ML VIAL ONE (20:58)
[2024-05-22] MEDS ORDERED: Acetaminophen 500 MG TAB ONE (21:11)
[2024-05-22] MEDS ORDERED: Ondansetron ODT 4 MG TAB PO PRN (21:54)
[2024-05-22] MEDS ORDERED: Ondansetron PF 4 MG/2 ML Vial IVP PRN (21:54)
[2024-05-22 22:11] LABS: INR-International Normal Ratio 0.9; Prothrombin Time 11.7 sec (12.0-14.7)
[2024-05-22 22:12] LABS: PTT 27.7 sec (22.9-36.1)
[2024-05-22 23:19] VITALS: BMI 20.5
[2024-05-23] MEDS: Lidocaine 2% Viscous 10 mL, Alum & Magn 30 mL SSW SCH (00:09)
[2024-05-23] MEDS: traZODone HCl 150 MG TAB PO SCH (00:28)
[2024-05-23 01:42] LABS: Bacteria/HPF None Seen HPF (None Seen); Bilirubin Negative (Negative); Blood, Urine Negative (Negative); CAUTI Indications for Culture Alt mental st,lethar; Clarity Clear (Clear); Glucose, Urine (Dipstick) Normal (Negative); Ketone, Urine Negative (Negative); Leukocyte Negative Leu/uL (Negative); Nitrite Negative (Negative); Protein, Urine (Dipstick) Negative (Neg-Trace); RBC/HPF 0-3 HPF (0-3); Specific Gravity, Urine 1.016 (1.002-1.036); Squamous Epithelial 0-3 HPF (0-3); Urobilinogen Normal mg/dL (Less than 2); pH, Urine 5.5 (5.0-9.0)
[2024-05-23 01:45] LABS: Urine Culture Reflex No No
[2024-05-23] MEDS: Nicotine 14 MG PATCH TOP SCH (02:49)
[2024-05-23] MEDS: Acetaminophen 325 MG TAB PO SCH (02:49)
[2024-05-23] MEDS: Levothyroxine 175 MCG TAB PO SCH (07:01)
[2024-05-23] MEDS: Mometasone 200 MCG/Formoterol 5 MCG 120 PUFF INHALER INH SCH (07:13)
[2024-05-23] MEDS: Famotidine 20 MG TAB PO SCH (08:07)
[2024-05-23] MEDS: Pantoprazole DR 40 MG TAB PO SCH (08:07)
[2024-05-23] MEDS: Aspirin 81 mg Enteric Coated Tablet PO SCH (08:07)
[2024-05-23] MEDS: Multivitamin W/ Minerals 1 TAB PO SCH (08:07)
[2024-05-23] MEDS: Famotidine/PF 20 mg/2ml Vial SLOW IVP SCH (08:08)
[2024-05-23] MEDS ORDERED: Aspirin 81 mg Enteric Coated Tablet PO SCH (09:00)
[2024-05-23] MEDS: HYDROcodone/Acetaminophen 10/325 mg Tablet PO PRN (10:36)
[2024-05-23 10:59] LABS: #Basophils 0.06 10x3/uL (0.0-0.2); %Basophils 0.7 % (0.0-1.0); %Eosinophils 1.6 % (0.0-10.0); %Lymphocytes 18.6 % (21.0-51.0); %Monocytes 12.3 % (0.0-10.0); %Neutrophils 66.6 % (42.0-75.0); Hematocrit 36.2 % (36.0-47.0); Hemoglobin 12.1 g/dL (12.0-16.0); Mean Corpuscular HGB CONC 33.4 g/dL (32.0-36.0); Mean Corpuscular Hemoglobin 32.4 pg (27.0-31.0); Mean Corpuscular Volume 96.8 fL (78.0-98.0); Mean Platelet Volume 8.9 fL (7.4-10.4); Platelet Count 393 10x3/uL (130-400); RBC Distribution Width 13.8 % (11.5-14.5); Red Blood Cell (RBC) Count 3.74 mill/uL (4.20-5.40)
[2024-05-23 12:07] LABS: ALT (SGPT) 13 U/L (8-55); AST (SGOT) 18 U/L (5-34); Albumin 3.4 g/dL (3.4-4.8); Alkaline Phosphatase 66 U/L (40-110); Anion Gap 13 mmol/L (10-20); BUN (Urea Nitrogen) 12 mg/dL (9.8-20.1); Bilirubin, Total 0.3 mg/dL (0.2-1.2); Calc. Creatinine Clearance 70 mL/min (70-130); Calcium 9.3 mg/dL (7.8-10.44); Carbon Dioxide 24 mmol/L (23-31); Cardiac Risk 3.5 (Less than 4.5); Chloride 107 mmol/L (98-107); Cholesterol 169 mg/dl (< 200 Desired); Estimated GFR 94; Globulin 3.3 g/dL (2.4-3.5); Glucose 147 mg/dL (80-115); HDL Cholesterol 48 mg/dL (>60 Neg Risk); LDL Cholesterol, Calculated 106 mg/dL; Potassium 4.3 mmol/L (3.5-5.1); Protein, Total 6.7 g/dL (5.8-8.1); Sodium 140 mmol/L (136-145); Triglycerides 76 mg/dL (Less than 150)
[2024-05-23 16:06] VITALS: BP 146/72; TEMP 97.8
[2024-05-23] MEDS ORDERED: traZODone HCl 150 MG TAB PO SCH (21:00)
[2024-05-23] MEDS ORDERED: Atorvastatin Calcium 40 MG TAB PO SCH (21:00)
[2024-05-23] MEDS ORDERED: Ranolazine ER 500 MG TAB PO SCH (21:00)
[2024-05-24] MEDS ORDERED: Nicotine 14 MG PATCH TOP SCH (08:00)
== END 2024-05-23 17:25 | disposition home or self-care (01) ==
LOC: ERS 19:41 → 2SE 21:39
PROVIDERS: ADMIT Internal Medicine; ATTEND Internal Medicine
DX: R53.1 Weakness (principal); E78.5 Hyperlipidemia, unspecified; J44.9 Chronic obstructive pulmonary disease, unspecified; I10 Essential (primary) hypertension; G47.00 Insomnia, unspecified; K21.9 Gastro-esophageal reflux disease without esophagitis; M47.819 Spondylosis without myelopathy or radiculopathy, site unspecified; Z88.5 Allergy status to narcotic agent; Z88.2 Allergy status to sulfonamides; Z91.013 Allergy to seafood; Z79.899 Other long term (current) drug therapy; Z98.890 Other specified postprocedural states; Z79.51 Long term (current) use of inhaled steroids; Z90.81 Acquired absence of spleen; Z86.73 Personal history of transient ischemic attack (TIA), and cerebral infarction without residual deficits
CPT/HCPCS: 70450; 70551; 71045; 72141; 72148; 80053 ×2; 80061; 81001; 82962; 83690; 84484; 85025 ×2; 85610; 85730; 87040; 93005; 94640; 94664; 96374; 99285; G0378 ×3; 36415; 36416

== ENCOUNTER 2024-09-13 07:52 | Outpatient (CLI) | payer MEDICARE, BC | END 2024-09-13 07:53 | disposition home or self-care (01) | LOC: RAD 07:52 | PROVIDERS: ATTEND Internal Medicine Critical Care Medicine | DX: R06.00 Dyspnea, unspecified (principal) | CPT/HCPCS: 71046 ==

== ENCOUNTER 2025-06-13 10:19 | Outpatient (CLI) | payer MEDICARE, BC | END 2025-06-13 10:20 | disposition home or self-care (01) | LOC: SCSBT 10:19 | PROVIDERS: ATTEND Family Medicine | DX: Z78.0 Asymptomatic menopausal state (principal); M81.0 Age-related osteoporosis without current pathological fracture | CPT/HCPCS: 77080 ==